=== PATIENT | female | born 1985 | race African-American/Black ===

== ENCOUNTER 2017-03-26 12:20 | Emergency (ER) | payer OTHER ==
[~2017-03-26] VITALS: Ht 157.5 cm; Wt 56.7 kg
[~2017-03-26 12:20] MED LIST: BENADRYL25 MG PO; ORTHO TRI-CYCL1 EACH; PREDNISONE50 MG PO; TRIAMCINOLONE A15 G1 TP; ULTRAM 50MG TAB50 MG PO
[2017-03-26 12:58] LABS: URINE BILIRUBIN NEGATIVE (Negative); URINE BLOOD 2+ (Negative); URINE COLOR YELLOW; URINE GLUCOSE-RANDOM* NEGATIVE (Negative); URINE KETONES NEGATIVE (Negative); URINE NITRITE NEGATIVE (Negative); URINE PROTEIN (DIPSTICK) NEGATIVE (Negative); URINE SPECIFIC GRAVITY 1.015 (1.003-1.035)
[2017-03-26 13:08] LABS: SQUAMOUS >10 Many /LPF (0-3)
[2017-03-26 13:09] LABS: CRYSTALS None Seen /LPF (None Seen); URINE WBC 0-5 Rare /HPF (0-5)
[2017-03-26 13:15] LABS: CASTS None Seen /LPF (None Seen)
[2017-03-26 13:18] LABS: ABSOLUTE NEUTROPHILS 2.8 thou/uL (1.4-8.2); BASOPHILS 0.9 % (0.0-2.0); EOSINOPHILS 3.6 % (0.0-3.0); HEMATOCRIT 41.7 % (37.0-47.0); LYMPHOCYTES 38.4 % (24.0-44.0); MCH 32.2 pg (26.0-34.0); MCHC 33.5 g/dL (28.0-37.0); MCV 96.1 fL (80.0-100.0); MONOCYTES 9.1 % (1.0-8.0); PLATELET COUNT 307 thou/uL (150-400); RBC 4.34 mil/uL (4.20-5.00); RDW 13.9 % (10.5-14.5); WBC 5.9 thou/uL (4.0-11.0)
[2017-03-26 13:22] LABS: MANUAL DIFF NO
[2017-03-26 13:26] LABS: CALCIUM 8.5 mg/dL (8.5-10.1); CREATININE 0.7 mg/dL (0.6-1.0); POTASSIUM 3.6 mmol/L (3.5-5.1)
[2017-03-26 13:31] LABS: ALBUMIN 3.8 g/dL (3.4-5.0); TOTAL BILIRUBIN 0.9 mg/dL (<0.1-1.0); TOTAL PROTEIN 7.5 g/dL (6.4-8.2)
[2017-03-26] MEDS ORDERED: AMOXICILLIN 50500 MG PO (14:02)
[2017-03-26] MEDS ORDERED: LEVSIN-SL0.125 MG SL (14:06)
[2017-03-26] MEDS ORDERED: FLAGYL500 MG PO (14:34)
[2017-03-26 14:40] VITALS: BP 125/70
== END 2017-03-26 14:42 | disposition home or self-care (01) ==
LOC: ER 12:20
PROVIDERS: Physician Assistant
DX: A04.7 Enterocolitis due to Clostridium difficile (principal); J45.909 Unspecified asthma, uncomplicated; F10.99 Alcohol use, unspecified with unspecified alcohol-induced disorder